=== PATIENT | female | born 1995 | race Caucasian/White ===

== ENCOUNTER 2016-10-20 13:34 | Emergency (ER) | payer OTHER ==
[~2016-10-20] VITALS: Ht 165.1 cm; Wt 78.9 kg
[2016-10-20 13:44] VITALS: TEMP 36.9; Ht 165.1 cm; Wt 78.9 kg
[2016-10-20 14:58] LABS: BASO % 0.5 %; BASO ABS # 0.03 K/uL (0-0.2); COMPLETE YES; EOS % 8.5 %; HEMATOCRIT 40.1 % (37-47); LYMPH ABS # 2.47 K/uL (1.2-3.4); MEAN CELL VOLUME 92.6 fL (80-100); MEAN CORPUSCULAR HEMOGLOBIN 33.7 pg (25-34); MEAN CORPUSCULAR HGB CONC 36.4 g/dl (32-36); MEAN PLATELET VOLUME 10.4 fL (7.4-10.4); MONO % 8.4 %; NEUT % 43.6 %; PLATELET COUNT 237 K/uL (130-400); RED BLOOD COUNT 4.33 M/uL (4.2-5.4); WHITE BLOOD COUNT 6.34 K/uL (4.8-10.8)
[2016-10-20 15:09] LABS: URINE APPEARANCE CLEAR (CLEAR); URINE BILIRUBIN NEG (NEG); URINE COLOR YELLOW; URINE NITRITE NEG (NEG); URINE PH 5.5 (4.5-7.5); URINE SPECIFIC GRAVITY 1.022 (1.000-1.030); UROBILINOGEN NEG (NEG); ZZUR CULT IF INDIC CLEAN CATCH NO
[2016-10-20 15:10] LABS: MANUAL MICROSCOPIC REQUIRED? NO; REVIEW REQ? NO
[2016-10-20 15:14] LABS: ALT/SGPT 22 U/L (12-78); BLOOD UREA NITROGEN 11 mg/dl (7-18); BUN/CREATININE RATIO 13.4 (10-20); CALCIUM 9.1 mg/dl (8.5-10.1); CARBON DIOXIDE 24 mmol/L (21-32); CHLORIDE 108 mmol/L (98-107); CREATININE 0.83 mg/dl (0.60-1.20); GLUCOSE 84 mg/dl (70-99); POTASSIUM 4.1 mmol/L (3.5-5.1); SODIUM 142 mmol/L (136-145)
[2016-10-20 15:17] LABS: ALKALINE PHOSPHATASE 45 U/L (45-117); AST/SGOT 16 U/L (15-37)
[2016-10-20] MEDS ORDERED: ONDANSETRON INJ 2 MG/ML 2 ML VIAL IV STA (15:39)
[2016-10-20] MEDS ORDERED: SODIUM CHLORIDE 0.9% 1000ML 1,000 ML IV STA (15:39)
[2016-10-20] MEDS ORDERED: MoRPHine SULFATE 10 MG/ML CARP/VIAL IV STA (15:39)
[2016-10-20] MEDS ORDERED: OPTIRAY 320 IV PRN (17:00)
--- NOTE | 2016-10-20 18:29 | DIAGNOSTIC IMAGING REPORT ---
CT OF THE ABDOMEN AND PELVIS WITH CONTRAST CLINICAL HISTORY: Diffuse abdominal pain, worse on the right. COMPARISON STUDY: None. TECHNIQUE: Following IV administration of 92 mL of Optiray-320, axial images of the abdomen and pelvis were obtained from the lung bases to the proximal femurs. Images were reviewed in the axial, sagittal, and coronal planes. IV contrast was administered without complication. Oral contrast was administered. CT DOSE: 530.24 mGy.cm FINDINGS: The liver, spleen, adrenal glands, kidneys and pancreas are normal. There is no biliary or pancreatic ductal dilatation. No hydronephrosis is present. The caliber and wall thickness of small and large bowel are normal. The appendix is not well visualized on this exam and is obscured by a small amount of fluid within the right paracolic gutter. However, the appendix is likely visualized with the tip shown on image 311 of [id number]. The appendix is likely normal. The ovaries are not enlarged. There is a small amount of fluid within the pelvis. There is no evidence for a bowel obstruction. Skeletal structures are unremarkable. IMPRESSION: 1. Partially obscured appendix due to a small amount of fluid within the right paracolic gutter. However, the appendix is likely normal. No evidence for acute appendicitis however close clinical follow-up is recommended. 2. Small amount of fluid within the right paracolic gutter and pelvis. 3. No bowel obstruction. Electronically signed by: Ray Landa M.D. 10/20/2016 6:27 PM Dictated Date/Time: 10/20/2016 6:21 PM
[2016-10-20] MEDS ORDERED: ONDA4TAB46 PO (18:40)
[2016-10-20 18:49] VITALS: BP 91/55; PULSE 63; O2SAT 98
--- NOTE | 2016-10-20 21:16 | EMERGENCY ROOM VISIT NOTE ---
History Report prepared by Nancy: Giorgi Salmon Under the Supervision of: Jackson CosmeO. First contact with patient: 14:30 Chief Complaint: ABDOMINAL PAIN Stated Complaint: SHARP PAINS IN STOMACH/PAINS GO TO PELVIS AREA Nursing Triage Summary: Pt reports bilateral lower quadrant abdominal pain that began approx 6 days ago rated 6-7/10. No reports of N/V/D. Decreased appetite today. Pt also reports pelvic pain on L side. History of Present Illness The patient is a 20 year old female who presents to the Emergency Room with complaints of persistent abdominal pain beginning 6 days ago. She notes she had difficulty getting out of bed and walking around today, and that her last bowel movement was this morning which had no blood in the stool. She has had occasional nausea, and bilateral low back pain, but denies any vomiting or diarrhea, pain or burning during urination, or vaginal bleeding or discharge. She does not having any prior history of abdominal surgeries. Her last known menstrual period finished today. She has not had anything to eat or drink today , and denies any drug or alcohol use. She notes that she does have some pain at the base of the rectum. She denies any fevers, cough, runny nose, headache, change in vision, or any other concerning signs or symptoms. Source of History: patient Onset: 6 days ago Position: abdomen Quality: other (abdominal pain) Timing: other (persistent) Associated Symptoms: + back pain (bilateral low back), + nausea, No diarrhea , No urinary symptoms, No vomiting Note: The patient denies having any vaginal bleeding or discharge, and blood in the stool. Review of Systems See HPI for pertinent positives & negatives. A total of 10 systems reviewed and were otherwise negative. Family History No pertinent family history stated. Social History Smoking Status: Current Every Day Smoker Current/Historical Medications Scheduled PRN Ondansetron Hcl (Zofran), 4 MG PO TID PRN for Nausea Allergies Coded Allergies: No Known Allergies (Unverified , 10/20/16) Physical Exam Vital Signs Date Time Temp Pulse Resp B/P Pulse Ox O2 Delivery O2 Flow Rate FiO2 10/20/16 18:49 63 18 91/55 98 Room Air 10/20/16 17:33 79 16 92/51 99 Room Air 10/20/16 15:52 93 16 119/82 99 Room Air 10/20/16 14:32 67 16 112/59 97 Room Air 10/20/16 13:44 36.9 81 18 103/69 98 Room Air Physical Exam GENERAL: Sitting in bed, alert, well appearing, well nourished, no distress, non -toxic EYE EXAM: normal conjunctiva. OROPHARYNX: no exudate, no erythema, lips, buccal mucosa, and tongue normal and mucous membranes are moist NECK: supple, no nuchal rigidity, no adenopathy, non-tender LUNGS: Clear to auscultation. Normal chest wall mechanics HEART: no murmurs, S1 normal and S2 normal ABDOMEN: abdomen soft; diffuse abdominal tenderness; normo-active bowel sounds, no masses, no rebound or guarding. BACK: Back is symmetrical on inspection and there is no deformity, no midline tenderness, no CVA tenderness. SKIN: no rashes and no bruising UPPER EXTREMITIES: upper extremities are grossly normal. LOWER EXTREMITIES: No pitting edema. NEURO EXAM: Normal sensorium, cranial nerves II-XII grossly intact, normal speech, no gross weakness of arms, no gross weakness of legs. Gross sensation intact. Medical Decision & Procedures ER Provider Diagnostic Interpretation: Xray results per the radiologist and my interpretation. Other results have been interpreted by the radiologist and reviewed by me. CT OF THE ABDOMEN AND PELVIS WITH CONTRAST FINDINGS: The liver, spleen, adrenal glands, kidneys and pancreas are normal. There is no biliary or pancreatic ductal dilatation. No hydronephrosis is present. The caliber and wall thickness of small and large bowel are normal. The appendix is not well visualized on this exam and is obscured by a small amount of fluid within the right paracolic gutter. However, the appendix is likely visualized with the tip shown on image 311 of 481. The appendix is likely normal. The ovaries are not enlarged. There is a small amount of fluid within the pelvis. There is no evidence for a bowel obstruction. Skeletal structures are unremarkable. IMPRESSION: 1. Partially obscured appendix due to a small amount of fluid within the right paracolic gutter. However, the appendix is likely normal. No evidence for acute appendicitis however close clinical follow-up is recommended. 2. Small amount of fluid within the right paracolic gutter and pelvis. 3. No bowel obstruction. Electronically signed by: Ray Landa M.D. 10/20/2016 6:27 PM Dictated Date/Time: 10/20/2016 6:21 PM Laboratory Results 10/20/16 14:45 Red Blood Count 4.33, Mean Corpuscular Volume 92.6, Mean Corpuscular Hemoglobin 33.7, Mean Corpuscular Hemoglobin Concent 36.4, Mean Platelet Volume 10.4, Neutrophils (%) (Auto) 43.6, Lymphocytes (%) (Auto) 39.0, Monocytes (%) (Auto) 8.4, Eosinophils (%) (Auto) 8.5, Basophils (%) (Auto) 0.5, Neutrophils # (Auto) 2.77, Lymphocytes # (Auto) 2.47, Monocytes # (Auto) 0.53, Eosinophils # (Auto) 0.54, Basophils # (Auto) 0.03 10/20/16 14:45 Test 10/20/16 14:44 10/20/16 14:45 Urine Color YELLOW Urine Appearance CLEAR (CLEAR) Urine pH 5.5 (4.5-7.5) Urine Specific [place] 1.022 (1.000-1.030) Urine Protein NEG (NEG) Urine Glucose (UA) NEG (NEG) Urine Ketones NEG (NEG) Urine Occult Blood NEG (NEG) Urine Nitrite NEG (NEG) Urine Bilirubin NEG (NEG) Urine Urobilinogen NEG (NEG) Urine Leukocyte Esterase NEG (NEG) Urine WBC (Auto) 1-5 /hpf (0-5) Urine RBC (Auto) 0-4 /hpf (0-4) Urine Hyaline Casts (Auto) 0 /lpf (0-5) Urine Epithelial Cells (Auto) 10-20 /lpf (0-5) Urine Bacteria (Auto) NEG (NEG) Urine Test NEG (NEG) White Blood Count 6.34 K/uL (4.8-10.8) Red Blood Count 4.33 M/uL (4.2-5.4) Hemoglobin 14.6 g/dL (12.0-16.0) Hematocrit 40.1 % (37-47) Mean Corpuscular Volume 92.6 fL (80-100) Mean Corpuscular Hemoglobin 33.7 pg (25-34) Mean Corpuscular Hemoglobin Concent 36.4 g/dl (32-36) Platelet Count 237 K/uL (130-400) Mean Platelet Volume 10.4 fL (7.4-10.4) Neutrophils (%) (Auto) 43.6 % Lymphocytes (%) (Auto) 39.0 % Monocytes (%) (Auto) 8.4 % Eosinophils (%) (Auto) 8.5 % Basophils (%) (Auto) 0.5 % Neutrophils # (Auto) 2.77 K/uL (1.4-6.5) Lymphocytes # (Auto) 2.47 K/uL (1.2-3.4) Monocytes # (Auto) 0.53 K/uL (0.11-0.59) Eosinophils # (Auto) 0.54 K/uL (0-0.5) Basophils # (Auto) 0.03 K/uL (0-0.2) RDW Standard Deviation 41.5 fL (36.4-46.3) RDW Coefficient of Variation 12.2 % (11.5-14.5) Immature Granulocyte % (Auto) 0.0 % Immature Granulocyte # (Auto) 0.00 K/uL (0.00-0.02) Anion Gap 10.0 mmol/L (3-11) Est Creatinine Clear Calc Drug Dose 111.3 ml/min Estimated GFR () 116.8 Estimated GFR (Non- 100.8 BUN/Creatinine Ratio 13.4 (10-20) Calcium Level 9.1 mg/dl (8.5-10.1) Total Bilirubin 0.4 mg/dl (0.2-1) Direct Bilirubin < 0.1 mg/dl (0-0.2) Aspartate Amino Transf (AST/SGOT) 16 U/L (15-37) Alanine Aminotransferase (ALT/SGPT) 22 U/L (12-78) Alkaline Phosphatase 45 U/L (45-117) Total Protein 7.2 gm/dl (6.4-8.2) Albumin 4.0 gm/dl (3.4-5.0) Lipase 99 U/L (73-393) Laboratory results per my review. Medications Administered Medications (Trade) Dose Ordered Sig/Cirilo Route Start Time Stop Time Status Last Admin Dose Admin Sodium Chloride (Nss 1000ml) 1,000 ml @ 999 mls/hr Q1H1M STAT IV 10/20/16 15:39 10/20/16 16:39 DC 10/20/16 15:48 999 MLS/HR Ondansetron HCl (Zofran Inj) 4 mg NOW STAT IV 10/20/16 15:39 10/20/16 15:41 DC 10/20/16 15:47 4 MG Morphine Sulfate (MoRPHine SULFATE INJ) 6 mg NOW STAT IV 10/20/16 15:39 10/20/16 15:41 DC 10/20/16 15:47 6 MG ED Course ED COURSE: Vital signs were reviewed and showed normal. The patients medical record was reviewed The above diagnostic studies were performed and reviewed. ED treatments and interventions as stated above. 1449: The patient was evaluated in room C10. A complete history and physical examination was performed. 1539: Ordered Morphine Sulfate 6 mg IV, Zofran Inj 4 mg IV, and NSS 1,000 ml @ 999 mls/hr IV. 1552: I reassessed the patient. She is feeling better. 1845: Upon reevaluation, the patient is hemodynamically stable.I discussed my findings with the patient and she understands and agrees with the treatment plan. Based on the patients age, coexisting illnesses, exam and lab findings the decision to treat as an outpatient was made. The patient remained stable while under my care. The patient appeared well at the time of discharge. Medical Decision Differential diagnoses includes but is not limited to gastritis, peptic ulcer disease, GERD, gallbladder disease, pancreatitis, small bowel obstruction, acute coronary syndrome, pericarditis, ischemic bowel, irritable bowel disease, irritable bowel syndrome, appendicitis, diverticulitis, malignancy, hernia, urinary tract infection, torsion, /ectopic (if female), perforation, trauma, infectious. Patient is a 20-year-old female who presents the ER for 6 days of intermittent nausea along with diffuse abdominal pain which has been worsening. Last bowel movement was this a.m. CBC along with BMP, LFTs, bilirubin and lipase was unremarkable. UA was unremarkable. Urine was negative. CT of her abdomen pelvis was unremarkable. Patient was given IV fluids along with Toradol and Zofran. She has significant improvement in her symptoms. She was requesting to eat while in the ER. She is updated bedside discharged with Zofran and shortened follow with her primary care doctor. Discussed with Pt concerning signs and symptoms to watch out for. Pt was instructed to follow up with their PCP and discussed with the patient their option to return to the ED at anytime for persistent or worsening symptoms. The appropriate anticipatory guidance and out-patient management, including indications for return to the emergency department, were explained at length to the patient and understood. Impression Primary Impression: Abdominal pain Scribe Attestation The scribe's documentation has been prepared under my direction and personally reviewed by me in its entirety. I confirm that the note above accurately reflects all work, treatment, procedures, and medical decision making performed by me. Departure Information Dispostion Home / Self-Care Prescriptions Ondansetron Hcl (ZOFRAN) 4 Mg Tab 4 MG PO TID Y for Nausea, #30 TAB Prov: Doug Andres, DO 10/20/16 Forms HOME CARE DOCUMENTATION FORM, IMPORTANT VISIT INFORMATION Patient Instructions Abdominal Pain - [facility], My [facility] Additional Instructions Please follow up with your primary care doctor or if you are a student [facility] services with in the next 24 hours. Any worsening of your symptoms, please return to the ED immediately. This includes fevers greater than 100.4, persistent nausea vomiting, any worsening of the abdominal pain, or any other concerning signs or symptoms from your standpoint. Problem Qualifiers Primary Impression: Abdominal pain Abdominal location: generalized Qualified Codes: R10.84 - Generalized abdominal pain
== END 2016-10-20 18:58 | disposition home or self-care (01) ==
LOC: C.EDB 13:36 → C.EDC 18:58
DX: R10.84 Generalized abdominal pain (principal); F17.210 Nicotine dependence, cigarettes, uncomplicated